=== PATIENT | female | born 1940 | race Caucasian/White ===

== ENCOUNTER → 2017-07-28 | Outpatient (CLI) | payer OTHER, MEDICARE ==
--- NOTE | 2017-07-28 13:17 | CT ---
History: Headache Study: CT head without contrast. Sagittal and coronal reformations were provided. Comparison: None Findings: There is a cranial flap at the base of the skull involving the right lower occipital bone o nai the cerebellum. Over the right tentorium is a densely calcified focal mass measuring 2 by 1.2 cm. There is no surrounding edema. The ventricles and sulci are prominent without mass effect. There is mild patchy periventricular white matter low attenuation diffusely. There is no hemorrhage or subdura l collection of fluid. The partially visualized paranasal sinuses are clear. The Impression: 1. No definite acute intracranial disease 2. 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 Status post right posterior lateral old craniotomy 3. Periventricular white-matter small-vessel disease Reported By:
== END ==
LOC: RAD 11:21
PROVIDERS: ATTEND Nurse Practitioner
DX: R51 Headache (principal)
CPT/HCPCS: 70450